=== PATIENT | female | born 1990 | race African-American/Black ===

== ENCOUNTER 2016-09-06 20:00 | Emergency (ER) | payer MEDICARE | END 2016-09-06 21:29 | disposition home or self-care (01) | LOC: D.ER 20:00 | DX: B34.9 Viral infection, unspecified (principal); M79.7 Fibromyalgia; M32.9 Systemic lupus erythematosus, unspecified ==

== ENCOUNTER 2016-11-02 00:06 | Emergency (ER) | payer MEDICARE ==
[2016-11-02 00:59] LABS: BASOPHILS 0.3 % (0-2); EOSINOPHILS 0.8 % (0-7); HEMATOCRIT 36.7 % (36.0-48.0); HEMOGLOBIN 12.9 g/dL (12-16); IMMATURE GRANULOCYTES 0.2 % (0-5); LYMPHOCYTES 35.8 % (15-50); MCH 33.1 pg (26.0-34.0); MCHC 35.1 g/dL (31.0-37.0); MCV 94.1 fL (80.0-100.0); MEAN PLATELET VOLUME 10.7 fL (7.4-10.4); MONOCYTES 8.6 % (2-11); NEUTROPHILS 54.3 % (40-80); PLATELET COUNT 295 10x3/uL (130-400); RDW 12.1 % (11.5-14.5); WBC 10.7 10x3/uL (4.8-10.8)
[2016-11-02 01:05] LABS: APPEARANCE CLOUDY (CLEAR); BILIRUBIN NEGATIVE (NEGATIVE); COLOR YELLOW (YELLOW); GLUCOSE NEGATIVE (NEGATIVE); KETONE NEGATIVE (NEGATIVE); LEUKOCYTE ESTERASE TRACE (NEGATIVE); NITRITE NEGATIVE (NEGATIVE); PH 8.5 (5.0-6.0); PROTEIN NEGATIVE (NEGATIVE); SPECIFIC GRAVITY 1.005 (1.005-1.020); UROBILINOGEN NORMAL (NORMAL)
[2016-11-02 01:10] LABS: BACTERIA MODERATE /hpf (NONE SEEN); EPITHELIAL CELLS OCC /hpf (0-5); RED CELLS - URINE OCC /hpf (0-5); WHITE CELLS - URINE OCC /hpf (0-5)
[2016-11-02 01:11] LABS: AMORPHOUS SEDIMENT >1+ /lpf (NONE SEEN); GRANULAR CAST OCC /lpf (NONE SEEN); HYALINE CAST RARE /lpf (NONE SEEN)
== END 2016-11-02 01:19 | disposition home or self-care (01) ==
LOC: D.ER 00:06
PROVIDERS: Emergency Medicine
DX: R10.9 Unspecified abdominal pain (principal); R11.2 Nausea with vomiting, unspecified; M32.9 Systemic lupus erythematosus, unspecified

== ENCOUNTER 2016-11-19 23:59 | Emergency (ER) | payer MEDICARE ==
[2016-11-20 01:11] LABS: BASOPHILS 0.2 % (0-2); EOSINOPHILS 0.6 % (0-7); HEMATOCRIT 35.3 % (36.0-48.0); HEMOGLOBIN 12.5 g/dL (12-16); IMMATURE GRANULOCYTES 0.2 % (0-5); LYMPHOCYTES 33.7 % (15-50); MCH 32.7 pg (26.0-34.0); MCHC 35.4 g/dL (31.0-37.0); MCV 92.4 fL (80.0-100.0); MEAN PLATELET VOLUME 11.1 fL (7.4-10.4); MONOCYTES 7.6 % (2-11); NEUTROPHILS 57.7 % (40-80); PLATELET COUNT 254 10x3/uL (130-400); RBC 3.82 10x6/uL (4.00-5.40); RDW 11.9 % (11.5-14.5); WBC 11.3 10x3/uL (4.8-10.8)
[2016-11-20 01:23] LABS: ALBUMIN 3.8 g/dL (3.4-5.0); ALKALINE PHOSPHATASE 49 U/L (46-116); ALT (SGPT) 21 U/L (10-68); BILIRUBIN - TOTAL 0.35 mg/dL (0.2-1.3); CALC OSMOLALITY 277 mosm/kg (275-300); CARBON DIOXIDE 24.1 mmol/L (21.0-32.0); CHLORIDE - SERUM 104 mmol/L (98-107); CREATININE - SERUM 0.8 mg/dL (0.6-1.3); GLUCOSE 97 mg/dL (74-106); LIPASE 163 U/L (73-393); POTASSIUM - SERUM 3.6 mmol/L (3.5-5.1); PROTEIN - SERUM 7.3 g/dL (6.4-8.2); SODIUM 139 mmol/L (136-145); UREA NITROGEN 12 mg/dL (7-18); eGFR NON AFRICAN AMERICAN > 90 mL/min (90-120)
[2016-11-20 02:24] LABS: APPEARANCE HAZY (CLEAR); COLOR YELLOW (YELLOW); GLUCOSE NEGATIVE (NEGATIVE); LEUKOCYTE ESTERASE NEGATIVE (NEGATIVE); NITRITE NEGATIVE (NEGATIVE); PROTEIN NEGATIVE (NEGATIVE); SPECIFIC GRAVITY 1.015 (1.005-1.020)
[2016-11-20 02:25] LABS: BILIRUBIN NEGATIVE (NEGATIVE); HCG URINE NEGATIVE (NEGATIVE); KETONE SMALL mg/dL (NEGATIVE); UROBILINOGEN NORMAL (NORMAL)
== END 2016-11-20 02:43 | disposition home or self-care (01) ==
LOC: D.ER 23:59
PROVIDERS: Emergency Medicine
DX: R10.9 Unspecified abdominal pain (principal); R11.10 Vomiting, unspecified; R19.7 Diarrhea, unspecified; M32.9 Systemic lupus erythematosus, unspecified

== ENCOUNTER 2016-12-24 06:32 | Emergency (ER) | payer MEDICARE ==
[2016-12-24 08:09] LABS: BASOPHILS 0.2 % (0-2); EOSINOPHILS 0.3 % (0-7); HEMATOCRIT 40.3 % (36.0-48.0); HEMOGLOBIN 14.1 g/dL (12-16); IMMATURE GRANULOCYTES 0.3 % (0-5); LYMPHOCYTES 25.9 % (15-50); MCH 32.6 pg (26.0-34.0); MCV 93.1 fL (80.0-100.0); MONOCYTES 6.7 % (2-11); NEUTROPHILS 66.6 % (40-80); PLATELET COUNT 261 10x3/uL (130-400); RBC 4.33 10x6/uL (4.00-5.40); RDW 11.8 % (11.5-14.5); WBC 9.8 10x3/uL (4.8-10.8)
[2016-12-24 08:16] LABS: APPEARANCE HAZY (CLEAR); BILIRUBIN NEGATIVE (NEGATIVE); COLOR YELLOW (YELLOW); GLUCOSE NEGATIVE (NEGATIVE); HCG URINE NEGATIVE (NEGATIVE); KETONE NEGATIVE (NEGATIVE); LEUKOCYTE ESTERASE NEGATIVE (NEGATIVE); NITRITE NEGATIVE (NEGATIVE); PROTEIN NEGATIVE (NEGATIVE); SPECIFIC GRAVITY 1.005 (1.005-1.020); UROBILINOGEN NORMAL (NORMAL)
[2016-12-24 08:19] LABS: RED CELLS - URINE OCC /hpf (0-5); WHITE CELLS - URINE OCC /hpf (0-5)
[2016-12-24 08:20] LABS: AMORPHOUS SEDIMENT >1+ /lpf (NONE SEEN); BACTERIA MODERATE /hpf (NONE SEEN); EPITHELIAL CELLS OCC /hpf (0-5)
[2016-12-24 08:43] LABS: ALBUMIN 4.3 g/dL (3.4-5.0); ALKALINE PHOSPHATASE 51 U/L (46-116); ALT (SGPT) 22 U/L (10-68); BILIRUBIN - TOTAL 0.43 mg/dL (0.2-1.3); CALC OSMOLALITY 276 mosm/kg (275-300); CALCIUM 8.9 mg/dL (8.5-10.1); CARBON DIOXIDE 26.5 mmol/L (21.0-32.0); CHLORIDE - SERUM 104 mmol/L (98-107); CREATININE - SERUM 0.7 mg/dL (0.6-1.3); GLUCOSE 94 mg/dL (74-106); LIPASE 177 U/L (73-393); POTASSIUM - SERUM 3.7 mmol/L (3.5-5.1); SODIUM 139 mmol/L (136-145); UREA NITROGEN 11 mg/dL (7-18); eGFR NON AFRICAN AMERICAN > 90 mL/min (90-120)
== END 2016-12-24 12:02 | disposition home or self-care (01) ==
LOC: D.ER 06:32
PROVIDERS: Emergency Medicine
DX: R10.9 Unspecified abdominal pain (principal); R11.10 Vomiting, unspecified; M32.9 Systemic lupus erythematosus, unspecified; R53.83 Other fatigue

== ENCOUNTER 2017-02-18 10:47 | Emergency (ER) | payer MEDICARE ==
[2017-02-18 12:11] LABS: BASOPHILS 0.1 % (0-2); EOSINOPHILS 1.6 % (0-7); HEMATOCRIT 36.9 % (36.0-48.0); HEMOGLOBIN 12.7 g/dL (12-16); IMMATURE GRANULOCYTES 0.2 % (0-5); LYMPHOCYTES 21.4 % (15-50); MCH 32.6 pg (26.0-34.0); MCHC 34.4 g/dL (31.0-37.0); MCV 94.9 fL (80.0-100.0); MEAN PLATELET VOLUME 10.3 fL (7.4-10.4); MONOCYTES 10.6 % (2-11); NEUTROPHILS 66.1 % (40-80); PLATELET COUNT 256 10x3/uL (130-400); RBC 3.89 10x6/uL (4.00-5.40); WBC 11.2 10x3/uL (4.8-10.8)
[2017-02-18 12:31] LABS: ALBUMIN 3.9 g/dL (3.4-5.0); ALKALINE PHOSPHATASE 53 U/L (46-116); ALT (SGPT) 39 U/L (10-68); BILIRUBIN - TOTAL 0.34 mg/dL (0.2-1.3); CALC OSMOLALITY 279 mosm/kg (275-300); CALCIUM 9.1 mg/dL (8.5-10.1); CARBON DIOXIDE 26.3 mmol/L (21.0-32.0); CHLORIDE - SERUM 105 mmol/L (98-107); CREATININE - SERUM 0.9 mg/dL (0.6-1.3); GLUCOSE 100 mg/dL (74-106); POTASSIUM - SERUM 4.1 mmol/L (3.5-5.1); PROTEIN - SERUM 7.3 g/dL (6.4-8.2); SODIUM 141 mmol/L (136-145); UREA NITROGEN 9 mg/dL (7-18); eGFR NON AFRICAN AMERICAN 81 mL/min (90-120)
== END 2017-02-18 13:38 | disposition home or self-care (01) ==
LOC: D.ER 10:47
PROVIDERS: Physician Assistant
DX: J01.90 Acute sinusitis, unspecified (principal); R05 Cough; R07.81 Pleurodynia; K59.00 Constipation, unspecified; M32.9 Systemic lupus erythematosus, unspecified

== ENCOUNTER 2017-03-27 13:13 | Emergency (ER) | payer MEDICARE ==
[2017-03-27 14:03] LABS: BASOPHILS 0.2 % (0-2); EOSINOPHILS 0.7 % (0-7); HEMATOCRIT 39.6 % (36.0-48.0); HEMOGLOBIN 13.6 g/dL (12-16); IMMATURE GRANULOCYTES 0.2 % (0-5); LYMPHOCYTES 27.6 % (15-50); MCH 32.7 pg (26.0-34.0); MCHC 34.3 g/dL (31.0-37.0); MCV 95.2 fL (80.0-100.0); MEAN PLATELET VOLUME 10.8 fL (7.4-10.4); MONOCYTES 7.1 % (2-11); NEUTROPHILS 64.2 % (40-80); PLATELET COUNT 279 10x3/uL (130-400); RBC 4.16 10x6/uL (4.00-5.40); WBC 8.9 10x3/uL (4.8-10.8)
[2017-03-27 14:25] LABS: ALBUMIN 4.2 g/dL (3.4-5.0); ALKALINE PHOSPHATASE 53 U/L (46-116); ALT (SGPT) 22 U/L (10-68); AMYLASE - SERUM 104 U/L (25-115); BILIRUBIN - TOTAL 0.37 mg/dL (0.2-1.3); CALC OSMOLALITY 278 mosm/kg (275-300); CALCIUM 9.1 mg/dL (8.5-10.1); CARBON DIOXIDE 26.4 mmol/L (21.0-32.0); CHLORIDE - SERUM 106 mmol/L (98-107); CREATININE - SERUM 0.6 mg/dL (0.6-1.3); GLUCOSE 85 mg/dL (74-106); LIPASE 173 U/L (73-393); POTASSIUM - SERUM 4.1 mmol/L (3.5-5.1); PROTEIN - SERUM 7.5 g/dL (6.4-8.2); SODIUM 141 mmol/L (136-145); UREA NITROGEN 9 mg/dL (7-18); eGFR NON AFRICAN AMERICAN > 90 mL/min (90-120)
[2017-03-27 14:57] LABS: HCG URINE NEGATIVE (NEGATIVE)
[2017-03-27 15:00] LABS: APPEARANCE HAZY (CLEAR); BILIRUBIN NEGATIVE (NEGATIVE); COLOR YELLOW (YELLOW); GLUCOSE NEGATIVE (NEGATIVE); KETONE NEGATIVE (NEGATIVE); NITRITE NEGATIVE (NEGATIVE); PROTEIN NEGATIVE (NEGATIVE); SPECIFIC GRAVITY 1.025 (1.005-1.020); UROBILINOGEN NORMAL (NORMAL)
[2017-03-27 15:01] LABS: BACTERIA MANY /hpf (NONE SEEN); EPITHELIAL CELLS 0-5 /hpf (0-5); MUCUS <1+ /lpf (NONE SEEN); RED CELLS - URINE 0-5 /hpf (0-5); WHITE CELLS - URINE 0-5 /hpf (0-5)
== END 2017-03-27 15:53 | disposition home or self-care (01) ==
LOC: D.ER 13:13
PROVIDERS: Emergency Medicine; Nurse Practitioner Family
DX: K52.9 Noninfective gastroenteritis and colitis, unspecified (principal); R11.10 Vomiting, unspecified

== ENCOUNTER 2017-04-19 02:35 | Emergency (ER) | payer MEDICARE ==
[2017-04-19 03:30] LABS: BASOPHILS 0.2 % (0-2); EOSINOPHILS 0.5 % (0-7); HEMATOCRIT 35.7 % (36.0-48.0); HEMOGLOBIN 12.3 g/dL (12-16); IMMATURE GRANULOCYTES 0.2 % (0-5); LYMPHOCYTES 25.7 % (15-50); MCH 32.6 pg (26.0-34.0); MCHC 34.5 g/dL (31.0-37.0); MCV 94.7 fL (80.0-100.0); MEAN PLATELET VOLUME 10.7 fL (7.4-10.4); MONOCYTES 7.4 % (2-11); PLATELET COUNT 290 10x3/uL (130-400); RBC 3.77 10x6/uL (4.00-5.40); RDW 12.1 % (11.5-14.5); WBC 12.4 10x3/uL (4.8-10.8)
[2017-04-19 03:44] LABS: ALKALINE PHOSPHATASE 42 U/L (46-116); ALT (SGPT) 24 U/L (10-68); BILIRUBIN - TOTAL 0.69 mg/dL (0.2-1.3); CALC OSMOLALITY 271 mosm/kg (275-300); CALCIUM 8.6 mg/dL (8.5-10.1); CARBON DIOXIDE 26.4 mmol/L (21.0-32.0); CHLORIDE - SERUM 102 mmol/L (98-107); CREATININE - SERUM 0.8 mg/dL (0.6-1.3); GLUCOSE 103 mg/dL (74-106); POTASSIUM - SERUM 3.3 mmol/L (3.5-5.1); PROTEIN - SERUM 7.4 g/dL (6.4-8.2); SODIUM 137 mmol/L (136-145); UREA NITROGEN 8 mg/dL (7-18); eGFR NON AFRICAN AMERICAN > 90 mL/min (90-120)
== END 2017-04-19 04:35 | disposition home or self-care (01) ==
LOC: D.ER 02:35
PROVIDERS: Family Medicine
DX: M79.662 Pain in left lower leg (principal); M32.9 Systemic lupus erythematosus, unspecified; Z86.73 Personal history of transient ischemic attack (TIA), and cerebral infarction without residual deficits

== ENCOUNTER 2017-06-11 22:45 | Emergency (ER) | payer MEDICARE | END 2017-06-12 00:48 | disposition home or self-care (01) | LOC: D.ER 22:45 | DX: J01.90 Acute sinusitis, unspecified (principal); Z86.73 Personal history of transient ischemic attack (TIA), and cerebral infarction without residual deficits; M32.9 Systemic lupus erythematosus, unspecified ==

== ENCOUNTER 2017-06-14 | Emergency (ER) | payer MEDICARE | END 2017-06-14 03:05 | disposition home or self-care (01) | LOC: D.ER | DX: J01.90 Acute sinusitis, unspecified (principal); Z86.73 Personal history of transient ischemic attack (TIA), and cerebral infarction without residual deficits; M32.9 Systemic lupus erythematosus, unspecified ==

== ENCOUNTER 2017-08-15 22:14 | Emergency (ER) | payer MEDICARE ==
[2017-08-15 22:49] LABS: BASOPHILS 0.2 % (0-2); EOSINOPHILS 0.9 % (0-7); HEMOGLOBIN 13.4 g/dL (12-16); IMMATURE GRANULOCYTES 0.3 % (0-5); LYMPHOCYTES 27.8 % (15-50); MCH 32.8 pg (26.0-34.0); MCHC 35.3 g/dL (31.0-37.0); MCV 92.9 fL (80.0-100.0); MEAN PLATELET VOLUME 10.1 fL (7.4-10.4); MONOCYTES 7.2 % (2-11); NEUTROPHILS 63.6 % (40-80); PLATELET COUNT 361 10x3/uL (130-400); RBC 4.09 10x6/uL (4.00-5.40); RDW 11.7 % (11.5-14.5); WBC 11.9 10x3/uL (4.8-10.8)
[2017-08-15 22:54] LABS: APPEARANCE CLEAR (CLEAR); BILIRUBIN NEGATIVE (NEGATIVE); COLOR YELLOW (YELLOW); GLUCOSE NEGATIVE (NEGATIVE); KETONE NEGATIVE (NEGATIVE); NITRITE NEGATIVE (NEGATIVE); PROTEIN NEGATIVE (NEGATIVE); UROBILINOGEN NORMAL (NORMAL)
== END 2017-08-16 00:38 | disposition home or self-care (01) ==
LOC: D.ER 22:14
PROVIDERS: Emergency Medicine
DX: R10.9 Unspecified abdominal pain (principal); R11.10 Vomiting, unspecified; Z86.73 Personal history of transient ischemic attack (TIA), and cerebral infarction without residual deficits; M32.9 Systemic lupus erythematosus, unspecified

== ENCOUNTER 2017-08-22 20:13 | Emergency (ER) | payer MEDICARE ==
[2017-08-22 22:33] LABS: BASOPHILS 0.1 % (0-2); EOSINOPHILS 0.4 % (0-7); HEMATOCRIT 38.6 % (36.0-48.0); HEMOGLOBIN 13.5 g/dL (12-16); IMMATURE GRANULOCYTES 0.3 % (0-5); LYMPHOCYTES 21.2 % (15-50); MCH 32.6 pg (26.0-34.0); MCV 93.2 fL (80.0-100.0); MEAN PLATELET VOLUME 10.6 fL (7.4-10.4); MONOCYTES 5.9 % (2-11); NEUTROPHILS 72.1 % (40-80); PLATELET COUNT 309 10x3/uL (130-400); RBC 4.14 10x6/uL (4.00-5.40); RDW 11.8 % (11.5-14.5); WBC 13.7 10x3/uL (4.8-10.8)
[2017-08-22 22:40] LABS: APPEARANCE CLEAR (CLEAR); BILIRUBIN NEGATIVE (NEGATIVE); COLOR YELLOW (YELLOW); GLUCOSE NEGATIVE (NEGATIVE); KETONE NEGATIVE (NEGATIVE); NITRITE NEGATIVE (NEGATIVE); PROTEIN NEGATIVE (NEGATIVE); SPECIFIC GRAVITY 1.015 (1.005-1.020); UROBILINOGEN NORMAL (NORMAL)
[2017-08-22 22:49] LABS: HCG SERUM NEGATIVE (NEGATIVE)
[2017-08-22 22:57] LABS: ALBUMIN 3.9 g/dL (3.4-5.0); ALKALINE PHOSPHATASE 48 U/L (46-116); ALT (SGPT) 36 U/L (10-68); BILIRUBIN - TOTAL 0.45 mg/dL (0.2-1.3); CALC OSMOLALITY 275 mosm/kg (275-300); CALCIUM 8.7 mg/dL (8.5-10.1); CARBON DIOXIDE 27.8 mmol/L (21.0-32.0); CHLORIDE - SERUM 103 mmol/L (98-107); CREATININE - SERUM 0.8 mg/dL (0.6-1.3); GLUCOSE 84 mg/dL (74-106); POTASSIUM - SERUM 3.7 mmol/L (3.5-5.1); PROTEIN - SERUM 7.3 g/dL (6.4-8.2); SODIUM 139 mmol/L (136-145); UREA NITROGEN 11 mg/dL (7-18); eGFR NON AFRICAN AMERICAN > 90 mL/min (90-120)
[2017-08-22 23:01] LABS: AMYLASE - SERUM 86 U/L (25-115); LIPASE 132 U/L (73-393)
[2017-08-22 23:02] LABS: TROPONIN-I < 0.017 ng/mL (0.000-0.060)
== END 2017-08-22 23:46 | disposition home or self-care (01) ==
LOC: D.ER 20:13
PROVIDERS: Family Medicine
DX: R07.81 Pleurodynia (principal); R10.2 Pelvic and perineal pain; R11.2 Nausea with vomiting, unspecified; M32.9 Systemic lupus erythematosus, unspecified; Z86.718 Personal history of other venous thrombosis and embolism; Z86.73 Personal history of transient ischemic attack (TIA), and cerebral infarction without residual deficits

== ENCOUNTER 2017-11-03 23:43 | Emergency (ER) | payer MEDICARE ==
[~2017-11-03] VITALS: Ht 162.6 cm; Wt 59.1 kg
[2017-11-04] VITALS: Ht 162.6 cm; Wt 59.1 kg
[2017-11-04] MEDS ORDERED: NEURONTIN800 MG PO (00:02)
[2017-11-04] MEDS ORDERED: ZANAFLEX4 MG (00:02)
[2017-11-04] MEDS ORDERED: ADDERALL 30 MG30 MG PO (00:03)
[2017-11-04] MEDS ORDERED: VALIUM 2 MG TAB2 MG (00:03)
[2017-11-04] MEDS ORDERED: ABILIFY2 MG (00:04)
[2017-11-04] MEDS ORDERED: TOPAMAX200 MG PO (00:05)
[2017-11-04 01:17] LABS: BASOPHILS 0.2 % (0-2); EOSINOPHILS 1.1 % (0-7); HEMATOCRIT 33.9 % (36.0-48.0); HEMOGLOBIN 12.2 g/dL (12-16); IMMATURE GRANULOCYTES 0.1 % (0-5); LYMPHOCYTES 41.3 % (15-50); MCH 32.6 pg (26.0-34.0); MCV 90.6 fL (80.0-100.0); MEAN PLATELET VOLUME 10.4 fL (7.4-10.4); NEUTROPHILS 50.3 % (40-80); PLATELET COUNT 276 10x3/uL (130-400); RBC 3.74 10x6/uL (4.00-5.40); WBC 8.2 10x3/uL (4.8-10.8)
[2017-11-04 01:32] LABS: ALBUMIN 3.8 g/dL (3.4-5.0); ALKALINE PHOSPHATASE 43 U/L (46-116); ALT (SGPT) 23 U/L (10-68); BILIRUBIN - TOTAL 0.56 mg/dL (0.2-1.3); CALC OSMOLALITY 277 mosm/kg (275-300); CARBON DIOXIDE 25.7 mmol/L (21.0-32.0); CHLORIDE - SERUM 106 mmol/L (98-107); CREATININE - SERUM 0.9 mg/dL (0.6-1.3); GLUCOSE 103 mg/dL (74-106); POTASSIUM - SERUM 3.6 mmol/L (3.5-5.1); PROTEIN - SERUM 7.2 g/dL (6.4-8.2); SODIUM 140 mmol/L (136-145); UREA NITROGEN 10 mg/dL (7-18); eGFR NON AFRICAN AMERICAN 81 mL/min (90-120)
[2017-11-04 02:17] VITALS: BP 124/67
== END 2017-11-04 02:17 | disposition home or self-care (01) ==
LOC: D.ER 23:43
PROVIDERS: Family Medicine
DX: R42 Dizziness and giddiness (principal); R53.1 Weakness; R55 Syncope and collapse; W18.2XXA Fall in (into) shower or empty bathtub, initial encounter; Y93.E1 Activity, personal bathing and showering; Y92.012 Bathroom of single-family (private) house as the place of occurrence of the external cause

== ENCOUNTER 2017-12-09 02:02 | Emergency (ER) | payer MEDICARE ==
[~2017-12-09] VITALS: Ht 162.6 cm; Wt 59.1 kg
[~2017-12-09 02:02] MED LIST: ABILIFY2 MG; ADDERALL 30 MG30 MG PO; NEURONTIN800 MG PO; TOPAMAX200 MG PO; VALIUM 2 MG TAB2 MG; ZANAFLEX4 MG
[2017-12-09 02:07] VITALS: Ht 162.6 cm; Wt 59.1 kg
[2017-12-09 02:45] LABS: HEMATOCRIT 37.1 % (36.0-48.0); HEMOGLOBIN 13.5 g/dL (12-16); LYMPHOCYTES 23.5 % (15-50); MCH 32.8 pg (26.0-34.0); MCHC 36.4 g/dL (31.0-37.0); MCV 90.3 fL (80.0-100.0); MEAN PLATELET VOLUME 10.6 fL (7.4-10.4); NEUTROPHILS 72.6 % (40-80); PLATELET COUNT 220 10x3/uL (130-400); RBC 4.11 10x6/uL (4.00-5.40); RDW 12.9 % (11.5-14.5); WBC 12.3 10x3/uL (4.8-10.8)
[2017-12-09 02:57] LABS: ALBUMIN 4.5 g/dL (3.4-5.0); ALKALINE PHOSPHATASE 49 U/L (46-116); ALT (SGPT) 28 U/L (10-68); BILIRUBIN - TOTAL 0.41 mg/dL (0.2-1.3); CALC OSMOLALITY 284 mosm/kg (275-300); CALCIUM 9.1 mg/dL (8.5-10.1); CARBON DIOXIDE 27.6 mmol/L (21.0-32.0); CHLORIDE - SERUM 106 mmol/L (98-107); CREATININE - SERUM 0.8 mg/dL (0.6-1.3); GLUCOSE 100 mg/dL (74-106); LIPASE 157 U/L (73-393); POTASSIUM - SERUM 4.4 mmol/L (3.5-5.1); PROTEIN - SERUM 8.3 g/dL (6.4-8.2); SODIUM 144 mmol/L (136-145); UREA NITROGEN 7 mg/dL (7-18); eGFR NON AFRICAN AMERICAN > 90 mL/min (90-120)
[2017-12-09 04:10] LABS: APPEARANCE CLEAR (CLEAR); BILIRUBIN NEGATIVE (NEGATIVE); COLOR YELLOW (YELLOW); GLUCOSE NEGATIVE (NEGATIVE); KETONE SMALL mg/dL (NEGATIVE); NITRITE NEGATIVE (NEGATIVE); PROTEIN NEGATIVE (NEGATIVE); SPECIFIC GRAVITY 1.025 (1.005-1.020); UROBILINOGEN NORMAL (NORMAL)
[2017-12-09 04:11] LABS: HCG URINE NEGATIVE (NEGATIVE)
[2017-12-09] MEDS ORDERED: ULTRACET TABLET1 TAB PO (04:28)
[2017-12-09 06:09] VITALS: BP 106/61
== END 2017-12-09 06:10 | disposition home or self-care (01) ==
LOC: D.ER 02:02
PROVIDERS: Emergency Medicine
DX: R10.9 Unspecified abdominal pain (principal); R51 Headache

== ENCOUNTER 2017-12-28 07:49 | Emergency (ER) | payer MEDICARE ==
[~2017-12-28] VITALS: Ht 162.6 cm; Wt 63.6 kg
[~2017-12-28 07:49] MED LIST changes: +ULTRACET TABLET1 TAB PO
[2017-12-28 07:52] VITALS: Ht 162.6 cm; Wt 63.6 kg
[2017-12-28] MEDS ORDERED: DICLOFENAC SODI50 MG PO (08:03)
[2017-12-28 08:40] VITALS: BP 91/64
== END 2017-12-28 08:40 | disposition home or self-care (01) ==
LOC: D.ER 07:49
DX: S20.219A Contusion of unspecified front wall of thorax, initial encounter (principal); X58.XXXA Exposure to other specified factors, initial encounter; Y93.89 Activity, other specified; Y92.89 Other specified places as the place of occurrence of the external cause; M32.9 Systemic lupus erythematosus, unspecified

== ENCOUNTER 2018-04-10 10:40 | Emergency (ER) | payer MEDICARE ==
[~2018-04-10] VITALS: Ht 162.6 cm; Wt 58.6 kg
[~2018-04-10 10:40] MED LIST changes: +DICLOFENAC SODI50 MG PO
[2018-04-10 10:53] VITALS: Ht 162.6 cm; Wt 58.6 kg
[2018-04-10 11:18] LABS: BASOPHILS 0.2 % (0-2); EOSINOPHILS 1.7 % (0-7); HEMATOCRIT 38.6 % (36.0-48.0); HEMOGLOBIN 13.1 g/dL (12-16); IMMATURE GRANULOCYTES 0.2 % (0-5); LYMPHOCYTES 19.3 % (15-50); MCH 32.8 pg (26.0-34.0); MCHC 33.9 g/dL (31.0-37.0); MCV 96.5 fL (80.0-100.0); MEAN PLATELET VOLUME 10.3 fL (7.4-10.4); MONOCYTES 10.8 % (2-11); NEUTROPHILS 67.8 % (40-80); PLATELET COUNT 249 10x3/uL (130-400); RDW 12.3 % (11.5-14.5); WBC 10.3 10x3/uL (4.8-10.8)
[2018-04-10 11:34] LABS: ALBUMIN 3.7 g/dL (3.4-5.0); ALKALINE PHOSPHATASE 50 U/L (46-116); ALT (SGPT) 19 U/L (10-68); BILIRUBIN - TOTAL 0.33 mg/dL (0.2-1.3); CALC OSMOLALITY 276 mosm/kg (275-300); CALCIUM 8.8 mg/dL (8.5-10.1); CARBON DIOXIDE 28.9 mmol/L (21.0-32.0); CHLORIDE - SERUM 103 mmol/L (98-107); CREATININE - SERUM 0.8 mg/dL (0.6-1.3); GLUCOSE 102 mg/dL (74-106); PROTEIN - SERUM 7.6 g/dL (6.4-8.2); SODIUM 140 mmol/L (136-145); UREA NITROGEN 7 mg/dL (7-18); eGFR NON AFRICAN AMERICAN > 90 mL/min (90-120)
[2018-04-10 11:38] LABS: AMYLASE - SERUM 71 U/L (25-115); APPEARANCE CLOUDY (CLEAR); BACTERIA FEW /hpf (NONE SEEN); BILIRUBIN NEGATIVE (NEGATIVE); COLOR YELLOW (YELLOW); GLUCOSE NEGATIVE (NEGATIVE); KETONE NEGATIVE (NEGATIVE); LIPASE 125 U/L (73-393); MUCUS >1+ /lpf (NONE SEEN); NITRITE NEGATIVE (NEGATIVE); PROTEIN NEGATIVE (NEGATIVE); RED CELLS - URINE 0-5 /hpf (0-5); SPECIFIC GRAVITY 1.015 (1.005-1.020); UROBILINOGEN NORMAL (NORMAL); WHITE CELLS - URINE 0-5 /hpf (0-5)
[2018-04-10 11:39] LABS: AMORPHOUS SEDIMENT >1+ /lpf (NONE SEEN)
[2018-04-10 12:56] LABS: HCG SERUM NEGATIVE (NEGATIVE)
[2018-04-10] MEDS ORDERED: ZOFRAN8 MG PO (14:24)
[2018-04-10] MEDS ORDERED: TORADOL10 MG PO (14:24)
[2018-04-10 16:30] VITALS: BP 128/79
== END 2018-04-10 16:30 | disposition home or self-care (01) ==
LOC: D.ER 10:40
PROVIDERS: Family Medicine
DX: R10.11 Right upper quadrant pain (principal); R11.2 Nausea with vomiting, unspecified; M79.18 Myalgia, other site

== ENCOUNTER 2018-04-29 06:36 | Day surgery (SDC) | payer MEDICARE ==
[2018-04-26 11:46] LABS: HEMATOCRIT 31.6 % (36.0-48.0); HEMOGLOBIN 9.4 g/dL (12-16); MCH 25.4 pg (26.0-34.0); MCHC 29.7 g/dL (31.0-37.0); MCV 85.4 fL (80.0-100.0); MEAN PLATELET VOLUME 9.1 fL (7.4-10.4); RBC 3.7 10x6/uL (4.00-5.40); RDW 15.8 % (11.5-14.5); WBC 18.9 10x3/uL (4.8-10.8)
[~2018-04-29] VITALS: Ht 162.6 cm; Wt 61.7 kg
[~2018-04-29 06:36] MED LIST changes: +TORADOL10 MG PO; +ZOFRAN8 MG PO
[2018-04-29 07:23] VITALS: BP 116/72; Ht 162.6 cm; Wt 61.7 kg
[2018-04-29 07:45] LABS: HCG URINE NEGATIVE (NEGATIVE)
[2018-04-29] MEDS ORDERED: HYDROCODON-ACE1 EAC7 PO (08:55)
== END 2018-04-29 14:15 | disposition home or self-care (01) ==
LOC: D.OPS 06:36 → D.PAN 08:00 → D.OPS 09:00 → D.PAN 09:00 → D.OPS 14:15
PROVIDERS: Anesthesiology; Surgery
DX: K80.20 Calculus of gallbladder without cholecystitis without obstruction (principal); K82.4 Cholesterolosis of gallbladder; Z01.812 Encounter for preprocedural laboratory examination

== ENCOUNTER 2018-08-25 01:04 | Observation (INO) | payer MEDICARE ==
[~2018-08-25] VITALS: Ht 162.6 cm; Wt 61.6 kg
[~2018-08-25 01:04] MED LIST changes: +HYDROCODON-ACE1 EAC7 PO
[2018-08-25 01:42] VITALS: BP 129/84
[2018-08-25 01:53] LABS: BASOPHILS 0.2 % (0-2); EOSINOPHILS 0.4 % (0-7); HEMATOCRIT 36.8 % (36.0-48.0); IMMATURE GRANULOCYTES 0.2 % (0-5); LYMPHOCYTES 22.8 % (15-50); MCH 33.1 pg (26.0-34.0); MCHC 35.3 g/dL (31.0-37.0); MCV 93.6 fL (80.0-100.0); MEAN PLATELET VOLUME 10.2 fL (7.4-10.4); NEUTROPHILS 68.4 % (40-80); PLATELET COUNT 292 10x3/uL (130-400); RBC 3.93 10x6/uL (4.00-5.40); WBC 11.6 10x3/uL (4.8-10.8)
[2018-08-25 02:01] LABS: INR 1.13 (0.85-1.17)
[2018-08-25 02:06] LABS: ALBUMIN 4.2 g/dL (3.4-5.0); ALKALINE PHOSPHATASE 52 U/L (46-116); ALT (SGPT) 27 U/L (10-68); BILIRUBIN - TOTAL 0.51 mg/dL (0.2-1.3); CALC OSMOLALITY 274 mosm/kg (275-300); CALCIUM 8.5 mg/dL (8.5-10.1); CARBON DIOXIDE 25.1 mmol/L (21.0-32.0); CHLORIDE - SERUM 102 mmol/L (98-107); CREATININE - SERUM 0.8 mg/dL (0.6-1.3); GLUCOSE 90 mg/dL (74-106); POTASSIUM - SERUM 3.6 mmol/L (3.5-5.1); PROTEIN - SERUM 7.8 g/dL (6.4-8.2); SODIUM 138 mmol/L (136-145); UREA NITROGEN 10 mg/dL (7-18); eGFR NON AFRICAN AMERICAN > 90 mL/min (90-120)
[2018-08-25 02:16] LABS: AMYLASE - SERUM 79 U/L (25-115); CKMB 1.2 U/L (0.0-3.6); CREATINE KINASE 375 UL (21-215); LIPASE 146 U/L (73-393); MAGNESIUM - SERUM 2.1 mg/dL (1.8-2.4)
[2018-08-25 02:17] LABS: TROPONIN-I < 0.017 ng/mL (0.000-0.060)
[2018-08-25 03:03] LABS: APPEARANCE CLEAR (CLEAR); BILIRUBIN NEGATIVE (NEGATIVE); COLOR YELLOW (YELLOW); GLUCOSE NEGATIVE (NEGATIVE); KETONE SMALL mg/dL (NEGATIVE); NITRITE NEGATIVE (NEGATIVE); PROTEIN NEGATIVE (NEGATIVE); UROBILINOGEN NORMAL (NORMAL)
[2018-08-25 03:04] LABS: HCG URINE NEGATIVE (NEGATIVE)
[2018-08-25 03:13] VITALS: BP 132/85; Ht 162.6 cm; Wt 61.6 kg
[2018-08-25 03:18] LABS: ERYTHROCYTE SEDIMENTATION RATE 9 mm/hr (0-20)
[2018-08-25 04:25] VITALS: BP 132/85
[2018-08-25 08:39] VITALS: BP 118/74
[2018-08-25 09:13] LABS: CKMB 1.1 U/L (0.0-3.6); CREATINE KINASE 329 UL (21-215); TROPONIN-I < 0.017 ng/mL (0.000-0.060)
[2018-08-25 12:52] VITALS: BP 111/73
[2018-08-25] MEDS ORDERED: COLCRYS0.6 MG PO (13:17)
[2018-08-25 15:00] LABS: CKMB 0.6 U/L (0.0-3.6); CREATINE KINASE 261 UL (21-215)
[2018-08-25 15:05] LABS: TROPONIN-I < 0.017 ng/mL (0.000-0.060)
[2018-08-25 16:00] VITALS: BP 112/68
--- NOTE | 2018-08-25 18:10 | NUR ---
ALERT AND ORIENTED X4. SITTING UP IN BED. DISCHARGE INSTUCTIONS GIVEN VERBALLY AND WRITTEN. DISCHARGE MEDICATIONS CALLED TO [facility] ON CENTAL. DISCHARGE PAPERS SIGNED ON CHART. DC LT FA IV TIP INTACT. ESCORT TO RIDE VIA WHEELCHAIR. REMAINS FREE FROM INJURY.
--- NOTE | 2018-08-27 13:13 | EC ---
PATIENT:UNIQUE HIGGINS DATE OF SERVICE: 08/25/18 SEX: F MEDICAL RECORD: [id number] DATE OF : [birth year] LOCATION:D.M3 D.121 AGE OF PATIENT: 28 ADMISSION DATE: 08/25/18 REFERRING PHYSICIAN: INTERPRETING PHYSICIAN: RITA MEDINA MD ECHOCARDIOGRAM REPORT ECHO CHARGES 4 ECHO COMPLETE Date: 08/25/18 CLINICAL DIAGNOSIS: LUPUS ECHOCARDIOGRAPHIC MEASUREMENTS (adult normal given) AC root (d.<3.7cm) 2.4 cm LV Septum d (<1.2 cm> 1.1 cm Valve Excursion 2.0 cm LV Septum (systole) 1.6 cm Left Atria (s.<4.0cm> 3.3 cm LVPW d(<1.2cm) 1.0 cm RV (d.<2.3cm) 1.8 cm LVPW (sytole) 1.6 cm LV diastole(<5.6CM) 4.5 cm MV E-F(>70mm/sec) cm LV systole 2.3 cm LVOT Diameter 1.7 cm MV exc.(>10mm) cm Est.ejection fraction (50-75%) % DOPPLER: LVIT cm/sec A 76.0 cm/sec E 88.0 cm/sec LA cm/sec RVSP 25.0 mmHg LVOT 122 cm/sec AOP1/2T m/s Asc. Ao 140 cm/sec RVOT 62.0 cm/sec RA cm/sec PA 91.0 cm/sec AV Gradient Peak 7.8 mmHg AV Mean 4.0 mmHg AV Area 1.6 cm MV Gradient Peak 3.3 mmHg MV Mean 1.8 mmHg MV Area cm COMMENTS: Fire Control Technician: 1 JOSUÉ ERWINOE Clinical Social Work Therapist: 3 Dr. Emerson TAPE# PACS Pericardial Effusion N DATE OF SERVICE: Adequate 2D, color flow, spectral Doppler, and M-Mode. No LVH. LV internal dimension is normal. Wall motion normal. EF is greater than or equal to 55%. Aortic valve is tricuspid. No evidence of stenosis by Doppler interrogation. Left atrium is normal. Mitral valve shows no prolapse. Trace MR. Right-sided chamber size is grossly normal. Trace TR. TRANSINT:[id number] Voice Confirmation ID: [id number] DOCUMENT ID: [id number] ECHOCARDIOGRAM REPORT [id number] UNIQUE HIGGINS,RITA Pastor MD at 1313 CC: [id number] DICTATION DATE: 08/26/18930 DRIVER RECRUITER: 08/26/18 1143 DIS IN 08/25/18 [place] [id number] [place] [address]
--- NOTE | 2018-08-27 13:13 | CN ---
PATIENT NAME:UNIQUE HIGGINS MEDICAL RECORD: [id number] : [birth year] LOCATION:D.Felix D.1213 ADMIT DATE: 08/25/18 ACCOUNT: [id number] CONSULTING PHYSICIAN: RITA MEDINA MD REFERRING PHYSICIAN: ERNESTINA QURESHI MD DATE OF CONSULTATION: 08/25/2018 HISTORY: A 28-year-old female with history of lupus, apparently recurrent pericarditis. She has been treated with pulse steroids for the same. She has spoken previously with other physician about colchicine but never actually in fact started on this agent. No history of pericardial effusion or pericardial drainage. Pain worsens with inspiration and lying flat, fairly classic symptomatology. PAST MEDICAL HISTORY: Includes; 1. History of lupus. 2. ADD. ALLERGIES: None known. MEDICATIONS: Include Zanaflex 4 mg p.o. q. 6, Adderall 30 b.i.d., diazepam 2 t.i.d. p.r.n., Neurontin 800 t.i.d., Toradol 10 mg q. 8 p.r.n., Topamax 200 b.i.d. SOCIAL HISTORY: Nonsmoker and nondrinker. She takes care of her ADLs. REVIEW OF SYSTEMS: The patient reports easy bruising but reports no swollen glands. The patient reports no fever, no night sweats, no significant weight gain, no significant weight loss. No significant exercise tolerance. The patient reports no dry eyes, no irritation, no vision change. Patient reports no difficulty hearing and no ear pain. Patient reports no frequent nose bleeds or nose and sinus problems. Patient reports on arm pain on exertion. No shortness of breath while lying down. No history of heart murmur. Patient reports no cough, no wheezing or coughing up blood. Patient reports no abdominal pain, no vomiting. Normal appetite. No diarrhea and not vomiting blood. No nausea and no constipation. Patient reports no incontinence. No difficulty urinating. No hematuria. No increased frequency. Patient reports no muscle aches. No weakness, no arthralgias, no back pain. No swelling of the extremities. Patient reports no abnormal mole, no jaundice, no rashes. Reports no loss of consciousness. No weakness and no numbness. No seizures, dizziness, or headaches. The patient reports no depression, no sleep disturbance, feeling safe in a relationship and no alcohol abuse. Patient reports on fatigue. Reports no runny nose or sinus pressure. No itching, no hives, and no frequent sneezing. PHYSICAL EXAMINATION: GENERAL: Pleasant female, in no acute distress. VITAL SIGNS: Blood pressure 118/74. Pulse 81 and regular. HEENT: Normocephalic and atraumatic. NECK: No JVD or bruit. HEART: Regular. I do not hear a rub. LUNGS: Good air excursion. ABDOMEN: Soft and nontender. EXTREMITIES: Pulses are 2+. No edema. NEUROLOGIC: Grossly intact. CONSULT REPORT [id number] UNIQUE HIGGINS DIAGNOSTIC DATA: ECG shows no MA shifts or ST elevations. IMPRESSION: Symptoms certainly suspicious for pleuritis. Given flares before with, by her report ECG changes, I will put her on low-dose colchicine at 0.6 b.i.d. as a prophylactic empiric treatment. No contraindications for discharge from my standpoint. I will see her back in the office in 3-4 weeks. TRANSINT:[id number] Voice Confirmation ID: [id number] DOCUMENT ID: [id number] RITA MEDINA MD at 1313 CC: [id number] DICTATION DATE: 08/25/18 1258 CLIP LOADING MACHINE ADJUSTER: 08/25/181941 DIS IN 08/25/18 [place] [id number] [place] [address]
[2018-08-27 17:10] LABS: ANA REFLEX - DIRECT Negative (Negative)
== END 2018-08-25 18:12 | disposition home or self-care (01) ==
LOC: D.ER 01:04 → D.M3 02:32 → OBSVTIME 02:32 → D.M3 18:12
PROVIDERS: Family Medicine; ADMIT Family Medicine; ATTEND Family Medicine
DX: R07.9 Chest pain, unspecified (principal); R42 Dizziness and giddiness; R55 Syncope and collapse; I10 Essential (primary) hypertension; M32.9 Systemic lupus erythematosus, unspecified; F41.9 Anxiety disorder, unspecified; F90.9 Attention-deficit hyperactivity disorder, unspecified type; F31.9 Bipolar disorder, unspecified; Z86.73 Personal history of transient ischemic attack (TIA), and cerebral infarction without residual deficits

== ENCOUNTER 2019-04-24 19:13 | Emergency (ER) | payer MEDICARE ==
[2018-08-25 03:13] VITALS: BMI 23.3
[~2019-04-24 19:13] MED LIST changes: +COLCRYS0.6 MG PO
== END 2019-04-24 19:20 | disposition left against medical advice (07) ==
LOC: D.ER 19:13
DX: R11.10 Vomiting, unspecified (principal)